=== PATIENT | female | born 1945 | race Caucasian/White ===

== ENCOUNTER 2016-02-27 21:49 | Observation (INO) | payer MEDICARE, MEDICAID ==
[2016-02-27 21:50] VITALS: BMI 31.9
--- NOTE | 2016-02-27 22:16 | EDPRACDOC ---
- History of Present Illness Onset: 2100 HPI: PT COMPLAINS OF SUDDEN ONSET OF SUBSTERNAL CP AT 2100 TONIGHT WHILE LAYING IN BED, PT DESCRIBES PAIN ELEPHANT SITTING ON HER CHEST, STATES SHE FELT SOBR AND WAS NAUSEATED WITH THE PAIN, VOMITED X 1. EMS GAVE NTG X 2, PAIN WENT FROM 8/10 TO 3/10. PT STATES BYPASS SURGERY 5 YEARS AGO, STATES LAST CATH 4 YEARS AGO IN [facility], [place]. PT STATES RECENTLY MOVED HERE FROM [place], LIVING IN [facility]. Chest Pain Location: Reports: Substernal Pain Radiation: Reports: None Symptoms Occur: Reports: Suddenly, At Rest Cardiac Risk Factors: Reports: Hyperlipidemia, Hypertension, Diabetes Cardiac History of: Reports: Similar Pain in Past, [place], Cardiac Cath, CABG PE Risk Factors: Reports: None Medications within 24 Hours: Reports: None Prehospital Care: Reports: O2, IV, EKG, Monitor, SL NTG Pain Came On: Reports: Suddenly Pain Status: Present Now Pain Description: Reports: Pressure Pain Severity: Moderate Pain Worsens With: Reports: Nothing Pain Improves With: Reports: Nitroglycerin Associated Signs and Symptoms: Reports: SOB, Diaphoretic, Nausea. Denies: Palpitations, Vomiting, Calf Pain or Swelling, Chest Rash <Kofi Koehler - Last Filed: 02/27/16 23:42> <Jonah Camarillo - Last Filed: 02/27/16 23:58> - General Information Chief Complaint: Chest Pain Stated Complaint: CHEST PAIN Time Seen by Provider: 02/27/16 21:57 Home Medications: Home Medications Meloxicam 15 mg PO DAILY 12/04/15 Donepezil HCl 5 mg PO QHS 02/02/16 Acetaminophen [Mapap] 1,000 mg PO Q8H PRN 02/27/16 Budesonide/Formoterol Fumarate [Symbicort 160-4.5 Mcg Inhaler] 2 puff INH BID Cyanocobalamin (Vitamin B-12) [Vitamin B-12] 1,000 mcg PO DAILY 02/27/16 Diphenhydramine [Benadryl] 25 mg PO Q4H PRN 02/27/16 Ergocalciferol (Vitamin D2) [Vitamin D] 50,000 units PO WE 02/27/16 Melatonin/Pyridoxine [Melatonin 3 mg Tablet] 1 tab PO QHS 02/27/16 Multivitamin [One Daily] 1 tab PO DAILY 02/27/16 Nitroglycerin [Nitrostat] 0.4 mg SL Q5MX3 PRN 02/27/16 Phosp Acid/Dextrose/Fructose [Emetrol Oral Solution] 30 ml PO Q15MIN PRN Sitagliptin Phos/Metformin HCl [Janumet Xr 100-1,000 mg Tablet] 1 tab PO QHS Trazodone HCl [Desyrel] 50 mg PO QHS PRN 02/27/16 Allergies/Adverse Reactions: Allergies Allergy/AdvReac Type Severity Reaction Status Date / Time codeine [Codeine] Allergy Nausea/Vomi Verified 12/04/15 12:58 ting ED Past Medical History - History Reviewed Yes Nurses notes reviewed and agree except as marked - Patient Medical History Neurological History: Reports: Cerebrovascular Accident, Dementia Cardiac History: Reports: Atrial Fibrillation, Hypertension, Heart Attack, CABG (x 2). Denies: Congestive Heart Failure, Hypercholesterolemia Respiratory History: Denies: Asthma, COPD, Emphysema GI/ History: Denies: Gastroesophageal Reflux Musculoskeletal History: Reports: Arthritis Psychological History: Denies: Depression, Substance Use Disorder Systemic History: Reports: Diabetes. Denies: Cancer Surgical History: Reports: CABG (x 2) - Family Medical History Reports: Stroke (mom), Cardiac Disorders (dad) - Social Medical History Smoking Status: Former smoker Social History: Denies: Substance Use Disorder ETOH: None Substance Abuse: None Lives In: Assisted Living <Kofi Koehler - Last Filed: 02/27/16 23:42> - Patient Medical History Neurological History: Reports: Other Cardiac History: Reports: Cardiac Catheterization Surgical History: Reports: Other (3 VESSEL BIPASS GRAFT 5 YEARS AGO IN [place]. MULTIPLE STENTS- 8 LAST 6) <Jonah Camarillo - Last Filed: 02/27/16 23:58> EDM Review of Systems - Review of Systems Constitutional: negative: Chills, Fever Eyes: negative: Blurred Vision, Double Vision Ears: negative: Drainage Throat: negative: Pain Nose: negative: Congestion, Discharge Respiratory: Shortness of Breath. negative: Cough, Wheezing Cardiovascular: Chest Pain. negative: Palpitations Gastrointestinal: Nausea, Vomiting. negative: Diarrhea, Pain Genitourinary: negative: Dysuria, Frequency Neurological: negative: Dizziness, Headache, Numbness, Weakness Musculoskeletal: No Symptoms Reported Integumentary: No Symptoms Reported <Kofi Koehler - Last Filed: 02/27/16 23:42> - Physical Exam Constitutional: Alert (Awake), No apparent distress Oriented to: Time, Person, Place Last recorded Vital Signs: Oxygen Pulse Oxygen Saturation O2 Device Oxygen Flow Rate Fraction of Inspired Oxygen ( FIO2) - HEENT Head: Normal ( normocephalic) Eye Exam: Normal (PERRL, EOMI, Sclera white) Oropharynx: Normal (Pharynx:Moist without exudate,Gums-no swelling) Tympanic Membrane: Normal ENT EAC: Normal TMJ: Normal Nose: No Symptoms Reported (septum midline) Neck: Normal (FROM, trachea at midline) - Respiratory/Cardiovascular Respiratory: Normal - CTA (BBS clear to auscultation without adventitious sounds ) Cardiovascular: Normal (RRR without murmur, gallop or rub) - GI Auscultation: Normal (NABS) Palpation: Normal (Soft,No rebound or guarding, non distended) Tenderness: Non tender Wiseman's Sign: Negative - Musculoskeletal Back: Normal (Non-Tender) Extremities: Normal (Normal tone, Pulses 2+ No cyanosis or edema, FROM) - Integumentary Skin: Normal, Warm, Dry Lymphatics: Normal (no adenopathy) - Neurologic Memory Impaired: Normal Motor Function: Normal (Normal tone, Pulses 2+ No cyanosis or edema, FROM) Cranial Nerve: Normal (CN II-X11 intact sensation, strength 5/5) Cerebellar: Normal Mood Description: Normal Perception: Normal <Kofi Koehler - Last Filed: 02/27/16 23:42> - Physical Exam Last recorded Vital Signs: Last Vital Signs Temp 97.8 F 02/27/16 21:50 Pulse 71 02/27/16 21:50 Resp 18 02/27/16 21:50 BP 144/71 02/27/16 21:50 Pulse Ox 93 02/27/16 21:50 Oxygen Pulse Oxygen Saturation 93 O2 Device Nasal Cannula Oxygen Flow Rate 2 Fraction of Inspired Oxygen ( FIO2) <Jonah Camarillo - Last Filed: 02/27/16 23:58> ED Chest Pain Exam - Respiratory/Cardiovascular Respiratory: Normal - CTA Cardiovascular/Chest: Normal Radial Pulse: Normal Carotid Arteries: Normal Edema: negative: 1+, 2+, 3+, 4+, 5, 6 Chest Palpation: Normal <Kofi Koehler - Last Filed: 02/27/16 23:42> - Differential Diagnosis Angina, CHF, Costochondritis, Gastritis, Myocardial infarction, Pancreatitis, Pneumonia - Action Patient received Aspirin within last 24 hours?: No ASA given in the ED: Yes Patient received Beta Raven within last 24hrs: Yes - Re-evaluation Re-evaluation 1 Re-evaluation Time: 23:43 (PAIN RESOLVED) - Results 02/27/16 22:10 02/27/16 22:10 - EKG EKG #1 EKG Time: 21:58 -: Yes EKG interpreted by me Rate: bpm: 76 [place]: Normal Rhythm: NSR, PVCs Block: None Hypertrophy: None ST: Nonsp Comparison: 04/21/15 (NO CHANGE ) - Additional Information DISCUSSED WITH DR CAMARILLO, HE HAS SEEN PT, WILL DISCUSS WITH HOSPITALIST <Kofi Koehler - Last Filed: 02/27/16 23:42> - Results 02/27/16 22:10 02/27/16 22:10 <Jonah Camarillo - Last Filed: 02/27/16 23:58> - Departure Education/Counseling Given To: Patient Education/Counseling Given Regarding: Diagnosis, Treatment, Prognosis, Follow Up <Kofi Koehler - Last Filed: 02/27/16 23:42> - Departure Yes I personally saw and evaluated the patient. Disposition: Admit IP To This Hospital Decision to Admit Time: 23:57 Decision to admit date: 02/27/16 Decision to admit: from ED - Physician Consulted Hospitalist Time Called: 23:58 Provider Called: Nico Beck Time Child Attendant Returned Call: 23:58 <Jonah Camarillo - Last Filed: 02/27/16 23:58> - Departure Condition: Stable Final Diagnosis: ACS (acute coronary syndrome) Instructions: Chest Pain (ED)
[2016-02-27] MEDS ORDERED: NITROGLYCERINE 2 % OINTMENT PACK TOP ONE (22:18)
[2016-02-27] MEDS ORDERED: SODIUM CHLORIDE 0.9% 10 ML FLUSH FLUSH PRN (22:18)
[2016-02-27] MEDS ORDERED: ASPIRIN (CHEWABLE) 81 MG TAB PO ONE (22:18)
--- NOTE | 2016-02-27 22:43 | DIRPT ---
CLINICAL DATA: Substernal chest pain beginning at 2100 hours tonight, while in bed. Shortness of breath with nausea and vomiting. History of CABG, hypertension, atrial fibrillation, stroke, diabetes, dementia. EXAM: PORTABLE CHEST 1 VIEW COMPARISON: Chest radiograph June 26, 2015 FINDINGS: Cardiac silhouette is upper limits of normal in size, coronary artery stent noted. Calcified aortic knob. Status post median sternotomy. No pleural effusion or focal consolidation. No pneumothorax. Status post RIGHT shoulder arthroplasty. Surgical clips projected GE junction. IMPRESSION: Borderline cardiomegaly, no acute pulmonary process. Electronically Signed By: Shree Leigh M.D. On: 02/27/2016 22:40
[2016-02-27 23:05] LABS: AUTOMATED BASOPHIL 1.2 % (0-2); AUTOMATED EOSINOPHIL 3.7 % (0-5); AUTOMATED LYMPH 15.2 % (17-44); AUTOMATED MONOCYTE 7.4 % (3-10); AUTOMATED NEUTROPHIL 72.5 % (45-76); BLOOD UREA NITROGEN 14 MG/DL (7-17); CALC CORRECTED 9.9 MG/DL (8.4-10.2); CALCIUM 9.5 MG/DL (8.4-10.2); CALCULATED OSMOLALITY 269 MOs/Kg (270-290); CHLORIDE 104 mEq/L (98-107); GLUCOSE 102 MG/DL (70-99); MPV 10.1 fL (7.4-10.4); SODIUM LEVEL 139 mEq/L (137-146); TOTAL PROTEIN 6.4 G/DL (6.3-8.2)
[2016-02-27 23:11] LABS: PARTIAL THROMB. TIME 25.8 SEC (22-35); PT-INR 1.1
--- NOTE | 2016-02-27 23:36 | HISTPHYS ---
- Chief Complaint chest pain - History of Present Illness PRIMARY CARE PROVIDER: Dr. Hassan Patient is a resident of [facility] HPI: The patient is a 70 yo woman with coronary artery disease, history of CABG, who presents with chest pressure and palpitations. Onset: this evening. Duration: intermittent. Location: substernal. Radiation: right arm. Character: 6/10, pressure, "like an elephant sitting on my chest." Alleviated by: Nothing. Exacerbated by: Nothing. Associated Symptoms: Shortness of breath. Non-productive cough. No wheezing. No diaphoresis. Palpitations and chest pain. Vomiting x 2. Nausea. Nothing to eat in 2-3 days due to nausea. Chronic constipation. No abdominal pain, diarrhea, or bloody stool. Treatments: none at home except usual medications. - Medical History Cardiac History: Reports: Atrial Fibrillation, Hypertension, Heart Attack, CABG (x 2) Musculoskeletal History: Reports: Arthritis Systemic History: Reports: Diabetes (Type 2) Neurological History: Reports: Cerebrovascular Accident, Dementia, Other Idiopathic neuropathy. - Surgical History Reports: CABG (x 2) - Medictions/Allergies Allergies codeine [Codeine] Allergy (Verified 12/04/15 12:58) Nausea/Vomiting Current Medication List: Reviewed Home Medications Meloxicam 15 mg PO DAILY 12/04/15 Donepezil HCl 5 mg PO QHS 02/02/16 Acetaminophen [Mapap] 1,000 mg PO Q8H PRN 02/27/16 Budesonide/Formoterol Fumarate [Symbicort 160-4.5 Mcg Inhaler] 2 puff INH BID Cyanocobalamin (Vitamin B-12) [Vitamin B-12] 1,000 mcg PO DAILY 02/27/16 Diphenhydramine [Benadryl] 25 mg PO Q4H PRN 02/27/16 Ergocalciferol (Vitamin D2) [Vitamin D] 50,000 units PO WE 02/27/16 Melatonin/Pyridoxine [Melatonin 3 mg Tablet] 1 tab PO QHS 02/27/16 Multivitamin [One Daily] 1 tab PO DAILY 02/27/16 Nitroglycerin [Nitrostat] 0.4 mg SL Q5MX3 PRN 02/27/16 Phosp Acid/Dextrose/Fructose [Emetrol Oral Solution] 30 ml PO Q15MIN PRN Sitagliptin Phos/Metformin HCl [Janumet Xr 100-1,000 mg Tablet] 1 tab PO QHS Trazodone HCl [Desyrel] 50 mg PO QHS PRN 02/27/16 - Family History Reports: Stroke (mom), Cardiac Disorders (dad) - Social History Smoking Status: Former smoker Social History: Denies: Alcohol Use, Substance Use Disorder - Review of Systems GENERAL: No Fever, chills, or diaphoresis. Positive for fatigue/malaise. HEENT: No ear pain or discharge. No nasal discharge or bleeding. No throat pain or swelling. No eye pain or eye redness. RESPIRATORY: Shortness of breath. Non-productive cough. No wheezing. CARDIOVASCULAR: Palpitations and chest pain. GI: Vomiting x 2. Nausea. Nothing to eat in 2-3 days due to nausea. Chronic constipation. No abdominal pain, diarrhea, or bloody stool. NEUROLOGICAL: No headache or focal weakness. INTEGUMENT: no rashes, itching, or lesions. LYMPHATIC SYSTEM: no lymph node swelling or pain. MUSCULOSKELETAL: no new pain or joint swelling. GENITOURINARY: No dysuria or hematuria. ENDOCRINE: No polyuria or polydipsia. HEME: No chronic anemia, bleeding. Positive for easy bruising. - Physical Exam Vital Signs: Initial Vitals Temperature 97.8 F 02/27/16 21:50 Pulse Rate 71 02/27/16 21:50 Respiratory Rate 18 02/27/16 21:50 Blood Pressure 144/71 02/27/16 21:50 Pulse Oxygen Saturation 93 02/27/16 21:50 Weight: 89.6 kg Height: 5'6" BMI: 31.9 - Other Exam Other Exam Findings: GENERAL: Ill-appearing, well nourished, no acute distress. HEENT: Normocephalic, atraumatic; pupils equal and round. Nares patent, without discharge or bleeding. No oropharyngeal lesions or erythema. Mucous membranes are dry. NECK: is supple, no masses, trachea midline. RESPIRATORY: Clear to auscultation bilaterally. Chest wall movements are symmetric. No use of accessory muscles to breathe. No wheezing, rales, rhonchi. CARDIOVASCULAR: Normal S1, S2. Murmur 2/6 systolic. No rubs, or gallops. PMI non -displaced. Carotids: no carotid bruits. No bradycardia or tachycardia. DP pulses 2+ bilaterally. GI: soft, nontender, non-distended, normal active bowel sounds. No hepatosplenomegaly. INTEGUMENT: Clean, dry, and intact. No rashes. MUSCULOSKELETAL: Moving all extremities. No cyanosis. No clubbing. Edema: trace to 1+ lower extremity edema bilaterally. NEUROLOGICAL: Cranial nerves 2-12 grossly intact. Motor 4/5 throughout. Reflexes : 2+ bilaterally. Babinski: toes downgoing bilaterally. Intact Finger to nose. Sensory grossly intact to light touch. Intact rapid alternating movements bilaterally. No pronator drift. PSYCHIATRIC: Fully oriented. Normal and appropriate affect. LYMPHATIC: No cervical lymphadenopathy. No supraclavicular lymphadenopathy. - Lab Results Laboratory Results - last 24 hr 02/27/16 02/27/16 02/27/16 22:10 22:10 22:10 WBC 11.1 H RBC 4.60 Hgb 12.0 Hct 37.9 MCV 82 MCH 26.1 L MCHC 31.7 L RDW 16.3 H Plt Count 214 MPV 10.1 Neut % (Auto) 72.5 Lymph % (Auto) 15.2 L [place] % (Auto) 7.4 Eos % (Auto) 3.7 Baso % (Auto) 1.2 Absolute Neuts (auto) 7.99 Absolute Lymphs (auto) 1.67 PT 11.2 INR 1.1 APTT 25.8 Sodium 139 Potassium 3.9 Chloride 104 Carbon Dioxide 25 Anion Gap 14 BUN 14 Creatinine 0.70 Estimated GFR (MDRD) > 60 Glucose 102 H Calculated Osmolality 269 L Calcium 9.5 Corrected Calcium 9.9 Total Bilirubin 0.4 AST 20 ALT 32 Alkaline Phosphatase 106 Troponin I < 0.01 Zlw-K-Zaebhkobowc Pept 2500 H Total Protein 6.4 Albumin 3.6 - Diagnostic Findings EK beats per minute. Sinus rhythm with occasional PVCs. Reviewed EKG personally. Chest x-ray, viewed personally: EXAM: PORTABLE CHEST 1 VIEW COMPARISON: Chest radiograph June 26, 2015 FINDINGS: Cardiac silhouette is upper limits of normal in size, coronary artery stent noted. Calcified aortic knob. Status post median sternotomy. No pleural effusion or focal consolidation. No pneumothorax. Status post RIGHT shoulder arthroplasty. Surgical clips projected GE junction. IMPRESSION: Borderline cardiomegaly, no acute pulmonary process. - Assessment (1) Chest pain R07.9 - CHEST PAIN, UNSPECIFIED Acute Present on Admission: Yes Qualifiers: Chest pain type: C Ischemic chest pain type: I Rule out myocardial infarction. Plan: Obtain cardiac enzymes x 3. Place patient on telemetry. Give patient oxygen, aspirin. Give nitroglycerin, and morphine as needed for chest pain. Give statin. Stress test has been ordered for the morning. Patient has been advised, if the stress test is negative, to follow up with the primary care provider for evaluation of other potential causes of the chest pain. (2) Palpitations R00.2 - PALPITATIONS Acute Present on Admission: Yes Telemetry (3) Elevated brain natriuretic peptide (BNP) level R79.89 - OTHER SPECIFIED ABNORMAL FINDINGS OF BLOOD CHEMISTRY Acute Present on Admission: Yes Monitor for fluid overload. (4) Nausea and vomiting R11.2 - NAUSEA WITH VOMITING, UNSPECIFIED Acute Present on Admission: Yes Qualifiers: Vomiting type: V Vomiting Intractability: V PRN Zofran, Phenergan. (5) Shortness of breath R06.02 - SHORTNESS OF BREATH Acute Present on Admission: Yes Plan: O2 by NC prn. (6) Type 2 diabetes mellitus with diabetic polyneuropathy E11.42 - TYPE 2 DIABETES MELLITUS WITH DIABETIC POLYNEUROPATHY Acute Present on Admission: Yes Qualifiers: Diabetes mellitus intermediate accountant insulin use: D Plan: Hold oral diabetes medications. Check fingerstick blood sugars q ac and hs. Sliding scale insulin. Ordered A1c and urine microalbumin. Case Care Discussed with: Patient, Nursing Staff
[2016-02-27] MEDS ORDERED: METOPROLOL TARTRATE 25 MG TAB PO ONE (23:45)
[2016-02-28] MEDS ORDERED: DIPHENHYDRAMINE 25 MG CAP PO PRN (00:20)
[2016-02-28] MEDS ORDERED: ATORVASTATIN 40 MG TAB PO ONE (00:22)
[2016-02-28] MEDS ORDERED: NITROGLYCERINE 0.4 MG TAB SL PRN (00:23)
[2016-02-28] MEDS ORDERED: MELATONIN PO SCH (00:30)
[2016-02-28] MEDS ORDERED: PYRIDOXINE PO SCH (00:30)
[2016-02-28] MEDS ORDERED: BISACODYL 5 MG TAB PO PRN (01:00)
[2016-02-28] MEDS ORDERED: GUAIFEN 100 MG-DEXTROMETH 10 MG PER 5 ML PO PRN (01:00)
[2016-02-28] MEDS ORDERED: TEMAZEPAM 15 MG CAP PO PRN (01:00)
[2016-02-28] MEDS ORDERED: BENZONATATE 100 MG PERLES PO PRN (01:00)
[2016-02-28] MEDS ORDERED: GLUCOSE (ORAL GEL) 15 GM TUBE PO PRN (01:00)
[2016-02-28] MEDS ORDERED: SIMETHICONE 80 MG TAB PO PRN (01:00)
[2016-02-28] MEDS ORDERED: ONDANSETRON HCL 4 MG/2 ML VIAL IV PRN (01:00)
[2016-02-28] MEDS ORDERED: SENNA CONCENTRATE TAB PO PRN (01:00)
[2016-02-28] MEDS ORDERED: ACETAMINOPHEN 325 MG SUPP PR PRN (01:00)
[2016-02-28] MEDS ORDERED: PROMETHAZINE 25 MG/ML VIAL IV PRN (01:00)
[2016-02-28] MEDS ORDERED: Pharmacy Order Set Alert SCH (01:00)
[2016-02-28] MEDS ORDERED: GLUCAGON 1 MG VIAL SQ PRN (01:00)
[2016-02-28] MEDS ORDERED: Docusate Sodium 100 MG CAP PO PRN (01:00)
[2016-02-28] MEDS ORDERED: DEXTROSE 25 GM/50 ML PFS IV PRN (01:00)
[2016-02-28] MEDS: ALBUTEROL 0.083% 3 ML NEB NEB SCH ×4 (03:07→19:15)
[2016-02-28] MEDS: MORPHINE 2 MG/ML INJECTION IV PRN ×2 (03:14→12:31)
[2016-02-28] MEDS ORDERED: Vaccine Screening Complete SCH (04:00)
[2016-02-28] MEDS: REGULAR INSULIN 100 UNITS/ML - 3 ML VIAL SQ SCH ×3 (06:10→18:10)
[2016-02-28 07:15] LABS: MPV 9.1 fL (7.4-10.4)
[2016-02-28 07:22] LABS: BLOOD UREA NITROGEN 13 MG/DL (7-17); CALCIUM 9.6 MG/DL (8.4-10.2); CALCULATED OSMOLALITY 274 MOs/Kg (270-290); CHLORIDE 106 mEq/L (98-107); GLUCOSE 85 MG/DL (70-99); SODIUM LEVEL 143 mEq/L (137-146)
[2016-02-28] MEDS ORDERED: ASPIRIN (CHEWABLE) 81 MG TAB PO SCH (08:00)
[2016-02-28] MEDS: ACETAMINOPHEN 325 MG/TAB TABLET PO PRN ×2 (08:21→15:51)
[2016-02-28] MEDS ORDERED: CARVEDILOL 3.125 MG TAB PO SCH (09:00)
[2016-02-28] MEDS ORDERED: Non-Formulary Medication ITEM (Cyanocobalamin (Vitamin B-12) [Vitamin B-12] 1,000 MCG) PO SCH (09:00)
[2016-02-28] MEDS ORDERED: LISINOPRIL 5 MG TAB PO SCH (09:00)
[2016-02-28] MEDS ORDERED: Non-Formulary Medication ITEM (Budesonide/Formoterol Fumarate [Symbicort 160-4.5 Mcg Inh INH SCH (09:00)
[2016-02-28] MEDS ORDERED: Non-Formulary Medication ITEM (Multivitamin [One Daily] 1 TAB) PO SCH (09:00)
--- NOTE | 2016-02-28 09:31 | PCM.CARDCO ---
Consultation Date: 02/28/16 Requesting Physician: Nico Beck Distribution Coordinator: Rafi Conroy Consult Reason: Chest Pain, Other (With known CAD and remote bypass surgery) - History of Present Illness She is 70-year-old woman recently relook relocated to [facility]. She relates she had bypass surgery approximately 5 years ago in [place] has had no cardiology care and does not even take aspirin. She has has time to time she has chest pain heaviness in her chest precordial it is relieved with rest last night she had the same unrelieved with rest but tells me she was read given relief with the nitroglycerin. She also complains that time to time she has point localized soreness in her chest and has chest wall tenderness to physical examination. She also relates a history of having heart failure. I cannot get her to quantitate but she said the episodes of chest pain or in frequent and typically relieved at rest. Chief Complaint: chest pain - Past Medical and Surgical History Cardiac History: Reports: Atrial Fibrillation (Chads 2 Vasc score equals 6), Hypertension, Congestive Heart Failure, Heart Attack, Cardiac Catheterization, CABG (x 2). Denies: Hypercholesterolemia Respiratory History: Denies: Asthma, COPD, Emphysema GI/ History: Denies: Gastroesophageal Reflux Systemic History: Reports: Diabetes (Type 2). Denies: Cancer Musculoskeletal History: Reports: Arthritis Psychological History: Reports: Anxiety. Denies: Depression, Alcoholism, Substance Use Disorder Neurological History: Reports: Cerebrovascular Accident, Dementia, Other Past Surgical History: Reports: CABG (x 2), Cardiac Catheterization, Other (3 VESSEL BIPASS GRAFT 5 YEARS AGO IN [place]. MULTIPLE STENTS- 8 LAST 6) Allergies codeine [Codeine] Allergy (Verified 12/04/15 12:58) Nausea/Vomiting Home Medications Meloxicam 15 mg PO DAILY 12/04/15 Donepezil HCl 5 mg PO QHS 02/02/16 Acetaminophen [Mapap] 1,000 mg PO Q8H PRN 02/27/16 Budesonide/Formoterol Fumarate [Symbicort 160-4.5 Mcg Inhaler] 2 puff INH BID Cyanocobalamin (Vitamin B-12) [Vitamin B-12] 1,000 mcg PO DAILY 02/27/16 Diphenhydramine [Benadryl] 25 mg PO Q4H PRN 02/27/16 Ergocalciferol (Vitamin D2) [Vitamin D] 50,000 units PO WE 02/27/16 Melatonin/Pyridoxine [Melatonin 3 mg Tablet] 1 tab PO QHS 02/27/16 Multivitamin [One Daily] 1 tab PO DAILY 02/27/16 Nitroglycerin [Nitrostat] 0.4 mg SL Q5MX3 PRN 02/27/16 Phosp Acid/Dextrose/Fructose [Emetrol Oral Solution] 30 ml PO Q15MIN PRN Sitagliptin Phos/Metformin HCl [Janumet Xr 100-1,000 mg Tablet] 1 tab PO QHS Trazodone HCl [Desyrel] 50 mg PO QHS PRN 02/27/16 - Social History Travel Outside of [place] in the Last 3 Months?: No Smoking Status: Former smoker Social History: Denies: Alcohol Use, Substance Use Disorder - Family History Reports: Stroke (mom), Cardiac Disorders (dad) - Review of Systems Yes All systems reviewed and were negative except as marked Constitutional: negative: Chills, Fever - Cardiovascular Chest Pain - Hematologic Easy Bruising - Physical Exam Constitutional: No apparent distress, Alert (Awake), Other (She appears older than her age) Oriented to: Time, Person, Place Exam: Last Vital Signs Temp 98.3 F 02/28/16 08:13 Pulse 58 L 02/28/16 08:13 Resp 18 02/28/16 08:13 BP 129/62 02/28/16 08:13 Pulse Ox 94 02/28/16 08:13 Intake & Output 02/27/16 02/28/16 02/28/16 23:59 07:59 15:59 Output Total 50 Balance -50 Patient's weight 197 lb 11.2 oz - HEENT Head: Normal (No bruit thyromegaly or neck vein distention) Eye: Normal (PERRL, EOMI, Sclera white) Oropharynx: Normal (Pharynx:Moist without exudate,Gums-no swelling) Tympanic Membrane: Normal ENT EAC: Normal TMJ: Normal Nose: No Symptoms Reported (septum midline) - Respiratory/Cardiovascular Respiratory: Normal - CTA Cardiovascular: Normal. negative: Systolic murmur, Gallop/S3 - GI Auscultation: Normal (The abdomen is soft nondistended nontender) Palpation: Normal (Soft,No rebound or guarding, non distended) Tenderness: Non tender - Musculoskeletal Back: Normal (Non-Tender) Extremities: Normal (Normal tone, Pulses 2+ No cyanosis or edema, FROM), Femoral Pulse, Pedal Pulse, Radial Pulse. negative: Calf Tenderness, Clubbing, Cyanosis, Edema, Pedal Edema - Integumentary Skin: Normal, Warm, Dry Lymphatics: Normal (no adenopathy) - Neurologic Memory Impaired: Normal Cerebellar: Normal Mood Description: Normal Perception: Normal - Lab Results Laboratory Tests 02/27/16 02/27/16 02/28/16 22:10 22:10 04:15 WBC Hgb Hct INR 1.1 Potassium Creatinine Estimated GFR (MDRD) Hemoglobin A1c Troponin I < 0.01 < 0.01 Htw-G-Xzrqrusrkmc Pept 2500 H LDL Cholesterol, Calc 02/28/16 02/28/16 02/28/16 06:47 06:47 06:47 WBC Hgb Hct INR Potassium 4.2 Creatinine 0.80 Estimated GFR (MDRD) > 60 Hemoglobin A1c 6.0 H Troponin I < 0.01 Grk-G-Cfkdapxgexa Pept LDL Cholesterol, Calc 47.0 02/28/16 06:47 WBC 9.1 Hgb 11.3 L Hct 34.8 L INR Potassium Creatinine Estimated GFR (MDRD) Hemoglobin A1c Troponin I Gcp-E-Ohcyhjuoipo Pept LDL Cholesterol, Calc PORTABLE CHEST 1 VIEW COMPARISON: Chest radiograph June 26, 2015 FINDINGS: Cardiac silhouette is upper limits of normal in size, coronary artery stent noted. Calcified aortic knob. Status post median sternotomy. No pleural effusion or focal consolidation. No pneumothorax. Status post RIGHT shoulder arthroplasty. Surgical clips projected GE junction. IMPRESSION: Borderline cardiomegaly, no acute pulmonary process. EKG shows sinus rhythm diffuse ST-T abnormality repolarization versus ischemia - Assessment/Plan (1) CAD (coronary artery disease), [place] coronary artery I25.10 - ATHSCL HEART DISEASE OF [place] CORONARY ARTERY W/O ANG PCTRS Acute [place] heart with unspecified angina I25.119 - Atherosclerotic heart disease of [place] coronary artery with unspecified angina pectoris Comment: She has a history of known CAD remote bypass and presents with atypical angina. I would continue current guideline directed treatment aspirin statin beta- jeffry and guide the need for additional antianginal therapy or consideration of revascularization based on the results of her myocardial perfusion study performed this morning pharmacologically. Her comorbidities especially dementia with my opinion favor medical therapy. (2) Chest pain R07.9 - CHEST PAIN, UNSPECIFIED Acute unspecified I R07.9 - Chest pain, unspecified Comment: Atypical angina please see discussion above. Patient should have nitroglycerin available to taken a p.r.n. basis. She also has an element of chest wall tenderness which potentially may be the etiology of her symptoms. This is not uncommon after bypass surgery (3) Hypertension I10 - ESSENTIAL (PRIMARY) HYPERTENSION Chronic essential hypertension Comment: Stable continue current treatment carvedilol, and a 2nd agent is needed Dom or Arb would be ideal with her CAD Case Care Discussed with: Patient
[2016-02-28] MEDS ORDERED: SODIUM CHLORIDE 0.9% 10 ML FLUSH FLUSH ONE (10:00)
[2016-02-28] MEDS ORDERED: REGADENOSON 0.4 MG/5 ML SYRINGE IV ONE (10:00)
[2016-02-28] MEDS: BUDESONIDE 0.5 MG NEB NEB SCH ×2 (10:59→19:16)
[2016-02-28] MEDS ORDERED: SESTAMIBI 8 MCI V IV ONE (11:05)
[2016-02-28] MEDS ORDERED: CYANOCOBALAMIN (Vitamin B-12) 500 MCG TABLET PO SCH (12:00)
[2016-02-28] MEDS ORDERED: VITAMINS, MULTIPLE CAP PO SCH (12:00)
--- NOTE | 2016-02-28 16:08 | PCM.STRESS ---
This is a Lexiscan Cardiolite test. Patient received a standard dose of Lexiscan. The baseline heart rate and blood pressure, 58 beats per minute 110/70. The peak heart rate and blood pressure, 104 beats per minute 112/66. The resting EKG shows sinus rhythm nonspecific T-wave abnormality. The stress EKG segment response is normal to 69% of the maximum predicted heart rate of 150 beats per minute. The blood pressure response is normal. The rhythm is sinus, there is no arrhythmia. Symptoms present, none. The radiologist will generate the Cardiolite image report.
--- NOTE | 2016-02-28 16:12 | CAPUEKG ---
[place], [place] Test Date: 2016-02-28 Pat Name: JACQUELINE LOPEZ Department: Room: 431 Gender: Female Athletic Monitor: : Requested By: Order Number: Reading MD: Rafi Conroy MD Measurements Intervals Gladys Rate: 56 P: 71 OK: 194 QRS: 46 QRSD: 106 T: 1 QT: 430 QTc: 414 Interpretive Statements Sinus bradycardia Otherwise normal ECG Electronically Signed On 02-28-16 16:12:13 EST by Rafi Conroy MD <[id number] [id number]
--- NOTE | 2016-02-28 16:18 | DIRPT ---
CLINICAL DATA: 70-year-old female with atypical chest pain EXAM: MYOCARDIAL IMAGING WITH SPECT (REST AND PHARMACOLOGIC-STRESS) GATED LEFT VENTRICULAR WALL MOTION STUDY LEFT VENTRICULAR EJECTION FRACTION TECHNIQUE: Standard myocardial SPECT imaging was performed after resting intravenous injection of 8 mCi Tc-99m sestamibi. Subsequently, intravenous infusion of Lexiscan was performed under the supervision of the Cardiology staff. At peak effect of the drug, 25 mCi Tc-99m sestamibi was injected intravenously and standard myocardial SPECT imaging was performed. Quantitative gated imaging was also performed to evaluate left ventricular wall motion, and estimate left ventricular ejection fraction. COMPARISON: Prior chest x-ray 02/27/2016 FINDINGS: Perfusion: No decreased activity in the left ventricle on stress imaging to suggest reversible ischemia. There is a small fixed defect in the inferoseptal wall at the ventricular base which may represent artifact. Wall Motion: Normal left ventricular wall motion. No left ventricular dilation. Left Ventricular Ejection Fraction: 75% End diastolic volume 64 ml End systolic volume 16 ml IMPRESSION: 1. No reversible ischemia or infarction. 2. Normal left ventricular wall motion. 3. Left ventricular ejection fraction 75% 4. Low-risk stress test findings*. *2012 Appropriate Use Criteria for Coronary Revascularization Focused Update: J Am Linda Cardiol. 2012;59(9):857-881. http://content.onlinejacc.org/article.aspx?[email or web address] Electronically Signed By: Garcia Fernandes M.D. On: 02/28/2016 16:15
--- NOTE | 2016-02-28 16:27 | PCM.DCS92 ---
- Final/Secondary Discharge Diagnosis (1) Chest pain Acute R07.9 - CHEST PAIN, UNSPECIFIED Present on Admission: Yes unspecified I R07.9 - Chest pain, unspecified Comment: Rule out myocardial infarction. Plan: Obtain cardiac enzymes x 3. Place patient on telemetry. Give patient oxygen, aspirin. Give nitroglycerin, and morphine as needed for chest pain. Give statin. Stress test has been ordered for the morning. Patient has been advised, if the stress test is negative, to follow up with the primary care provider for evaluation of other potential causes of the chest pain. (2) Elevated brain natriuretic peptide (BNP) level Acute R79.89 - OTHER SPECIFIED ABNORMAL FINDINGS OF BLOOD CHEMISTRY Present on Admission: Yes Comment: Monitor for fluid overload. (3) Palpitations Acute R00.2 - PALPITATIONS Present on Admission: Yes Comment: Telemetry (4) Shortness of breath Acute R06.02 - SHORTNESS OF BREATH Present on Admission: Yes Comment: Plan: O2 by NC prn. (5) Type 2 diabetes mellitus with diabetic polyneuropathy Acute E11.42 - TYPE 2 DIABETES MELLITUS WITH DIABETIC POLYNEUROPATHY Present on Admission: Yes D Comment: Plan: Hold oral diabetes medications. Check fingerstick blood sugars q ac and hs. Sliding scale insulin. Ordered A1c and urine microalbumin. Discharge Disposition: Home Discharge Condition: Stable Cognitive Discharge Status: Unimpaired Fuctional Discharge Status: Independent Physician Follow up/Referrals: Wild Hassan MD [Primary Care Provider] - Listed Time Home Medications / New Prescriptions: New Aspirin [Aspirin, Chewable] 81 mg PO DAILYWM #100 tablet Carvedilol [Coreg] 3.125 mg PO BID #60 tablet Atorvastatin Calcium [Lipitor] 40 mg PO HS #30 tablet Continue Meloxicam 15 mg PO DAILY Donepezil HCl 5 mg PO QHS Sitagliptin Phos/Metformin HCl [Janumet Xr 100-1,000 mg Tablet] 1 tab PO QHS Melatonin/Pyridoxine [Melatonin 3 mg Tablet] 1 tab PO QHS Ergocalciferol (Vitamin D2) [Vitamin D2 (ergocalciferol)] 50,000 units PO WE Budesonide/Formoterol Fumarate [Symbicort 160-4.5 Mcg Inhaler] 2 puff INH BID Diphenhydramine [Benadryl] 25 mg PO Q4H PRN PRN Reason: ALLERGIC REACTION Cyanocobalamin (Vitamin B-12) [Vitamin B-12] 1,000 mcg PO DAILY Phosp Acid/Dextrose/Fructose [Emetrol Oral Solution] 30 ml PO Q15MIN PRN PRN Reason: Nausea Acetaminophen [Mapap] 1,000 mg PO Q8H PRN PRN Reason: Pain Trazodone HCl [Desyrel] 50 mg PO QHS PRN PRN Reason: Sleep Or Insomnia Multivitamin [One Daily] 1 tab PO DAILY Nitroglycerin [Nitrostat] 0.4 mg SL Q5MX3 PRN #100 tab.subl PRN Reason: Chest Pain Or Discomfort O2 Device: Room Air Diet at Discharge: As Tolerated, Regular Activity: No Restrictions Call Office For: Worsening Symptoms, Fever over 100.5, Pain Uncontrolled By Meds - DC Summary Notes Hospital Course Note:: Discharge summary on patient named JACQUELINE LOPEZ admitted to [facility] on 02/27/16 by Nico Beck MD. Date of discharge is []. The patient was admitted under observation and serial cardiac enzymes and EKGs were obtained. The patient ruled out for myocardial infarction by serial enzymes and EKGs. The patient then underwent a stress test. The stress test showed no evidence of reversible ischemia. The patient is stable for discharge home. 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 Her ejection fraction was 49% but she had no ischemia. Dr. garcia recommended treatment with aspirin beta-blockers Dom inhibitors and nitrates. She will also receive a statin at discharge. Total Time: 45 min - Physical Exam Vital Signs: Last Vital Signs Temp 98.3 F 02/28/16 12:12 Pulse 72 02/28/16 14:00 Resp 18 02/28/16 12:12 BP 141/65 02/28/16 12:12 Pulse Ox 97 02/28/16 15:01 Oxygen Pulse Oxygen Saturation 97 O2 Device Nasal Cannula Oxygen Flow Rate 2 Fraction of Inspired Oxygen ( FIO2) Constitutional: No apparent distress, Alert (Awake), Other (She appears older than her age) Oriented to: Time, Person, Place - HEENT Head: Normal (No bruit thyromegaly or neck vein distention) Eye: Normal (PERRL, EOMI, Sclera white) Oropharynx: Normal (Pharynx:Moist without exudate,Gums-no swelling) Tympanic Membrane: Normal ENT EAC: Normal TMJ: Normal Nose: No Symptoms Reported (septum midline) - Respiratory/Cardiovascular Respiratory: Normal - CTA Cardiovascular: Normal. negative: Systolic murmur, Gallop/S3 - GI Auscultation: Normal (The abdomen is soft nondistended nontender) Palpation: Normal (Soft,No rebound or guarding, non distended) Tenderness: Non tender - Musculoskeletal Back: Normal (Non-Tender) Extremities: Normal (Normal tone, Pulses 2+ No cyanosis or edema, FROM), Femoral Pulse, Pedal Pulse, Radial Pulse. negative: Calf Tenderness, Clubbing, Cyanosis, Edema, Pedal Edema - Integumentary Skin: Normal, Warm, Dry Lymphatics: Normal (no adenopathy) - Neurologic Memory Impaired: Normal Cerebellar: Normal Mood Description: Normal Perception: Normal - Other Exam Other Exam Findings: This is a Lexiscan Cardiolite test. Patient received a standard dose of Lexiscan. The baseline heart rate and blood pressure, 58 beats per minute 110/70. The peak heart rate and blood pressure, 104 beats per minute 112/66. The resting EKG shows sinus rhythm nonspecific T-wave abnormality. The stress EKG segment response is normal to 69% of the maximum predicted heart rate of 150 beats per minute. The blood pressure response is normal. The rhythm is sinus, there is no arrhythmia. Symptoms present, none. The radiologist will generate the Cardiolite image report.
[2016-02-28 16:40] VITALS: BP 115/58; TEMP 97.7
[2016-02-28] MEDS ORDERED: ENOXAPARIN 40 MG/0.4 ML PFS SQ SCH (18:00)
[2016-02-28] MEDS ORDERED: FLU VACCINE (Afluria) 0.5 ML DOSE IM ONE (18:00)
[2016-02-28 19:17] VITALS: PULSE 95
[2016-02-28] MEDS ORDERED: DONEPEZIL HCL 5 MG TAB PO SCH (21:00)
[2016-02-28] MEDS ORDERED: ATORVASTATIN 40 MG TAB PO SCH (21:00)
[2016-02-29] MEDS ORDERED: FLU VACCINE (Afluria) 0.5 ML DOSE IM ONE (08:00)
[2016-03-04] MEDS ORDERED: ERGOCALCIFEROL (VITAMIN D2) 50000 UNITS CAP PO SCH (09:00)
== END 2016-02-28 19:25 ==
LOC: ED 21:49 → PCU 23:36
PROVIDERS: ADMIT Internal Medicine; ATTEND Hospitalist
DX: R07.9 Chest pain, unspecified (principal); R00.2 Palpitations; R79.89 Other specified abnormal findings of blood chemistry; R11.2 Nausea with vomiting, unspecified; R06.02 Shortness of breath; E11.42 Type 2 diabetes mellitus with diabetic polyneuropathy; Z79.899 Other long term (current) drug therapy; Z87.891 Personal history of nicotine dependence; I25.10 Atherosclerotic heart disease of native coronary artery without angina pectoris; Z95.1 Presence of aortocoronary bypass graft; I10 Essential (primary) hypertension; I48.91 Unspecified atrial fibrillation; I25.2 Old myocardial infarction; Z86.73 Personal history of transient ischemic attack (TIA), and cerebral infarction without residual deficits; F03.90 Unspecified dementia, unspecified severity, without behavioral disturbance, psychotic disturbance, mood disturbance, and anxiety; Z23 Encounter for immunization
CPT/HCPCS: 36415; 71010; 78452; 80048; 80053; 80061; 82043; 82962; 83036; 83880; 84484; 85025; 85027; 85610; 85730; 87641; 93005; 93017; 94640; 96372; 99285; A4216; A9270; A9500; G0008; G0378; J2270; J2785; Q2035; 90471; 90656; J1650; J3490

== ENCOUNTER 2016-03-07 13:18 | Emergency (ER) | payer MEDICARE, MEDICAID ==
[2016-03-07 13:37] VITALS: BMI 31.8
[2016-03-07] MEDS ORDERED: SODIUM CHLORIDE 0.9% 10 ML FLUSH FLUSH PRN (13:37)
[2016-03-07] MEDS ORDERED: NS 1,000 ML IV ONE (13:37)
[2016-03-07 13:40] VITALS: TEMP 98.1
--- NOTE | 2016-03-07 13:47 | EDPRACDOC ---
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 Mode of Arrival: Ambulance Home Medications: Home Medications Meloxicam 15 mg PO DAILY 12/04/15 Donepezil HCl 5 mg PO QHS 02/02/16 Acetaminophen [Mapap] 1,000 mg PO Q8H PRN 02/27/16 Budesonide/Formoterol Fumarate [Symbicort 160-4.5 Mcg Inhaler] 2 puff INH BID Cyanocobalamin (Vitamin B-12) [Vitamin B-12] 1,000 mcg PO DAILY 02/27/16 Diphenhydramine [Benadryl] 25 mg PO Q4H PRN 02/27/16 Ergocalciferol (Vitamin D2) [Vitamin D2 (ergocalciferol)] 50,000 units PO WE Melatonin/Pyridoxine [Melatonin 3 mg Tablet] 1 tab PO QHS 02/27/16 Multivitamin [One Daily] 1 tab PO DAILY 02/27/16 Phosp Acid/Dextrose/Fructose [Emetrol Oral Solution] 30 ml PO Q15MIN PRN Sitagliptin Phos/Metformin HCl [Janumet Xr 100-1,000 mg Tablet] 1 tab PO QHS Trazodone HCl [Desyrel] 50 mg PO QHS PRN 02/27/16 Aspirin [Aspirin, Chewable] 81 mg PO DAILYWM #100 tablet 02/28/16 Atorvastatin Calcium [Lipitor] 40 mg PO HS #30 tablet 02/28/16 Carvedilol [Coreg] 3.125 mg PO BID #60 tablet 02/28/16 Nitroglycerin [Nitrostat] 0.4 mg SL Q5MX3 PRN #100 tab.subl 02/28/16 Guaifenesin [Robitussin] 10 ml PO Q6H PRN 03/07/16 Allergies/Adverse Reactions: Allergies Allergy/AdvReac Type Severity Reaction Status Date / Time codeine [Codeine] Allergy Nausea/Vomi Verified 03/07/16 13:37 ting - History of Present Illness Onset: 2 hours HPI: CP ON AND OFF FOR 5 YEARS; LASTS A FEW SECONDS; STARTED AFTER CABG 5 YEARS AGO. PALPITATIONS BEFORE. STRESS TEST LAST WEEK AND NEGATIVE. Chest Pain Location: Reports: Substernal Pain Radiation: Reports: None Symptoms Occur: Reports: Suddenly Cardiac History of: Reports: Stress Test PE Risk Factors: Reports: None Pain Came On: Reports: No Pain Pain Status: No Pain Pain Description: Reports: Sharp Pain Severity: Mild Pain Improves With: Reports: Nothing Associated Signs and Symptoms: Reports: Palpitations ED Past Medical History - History Reviewed Yes Nurses notes reviewed and agree except as marked - Patient Medical History Neurological History: Reports: Cerebrovascular Accident, Dementia Cardiac History: Reports: Atrial Fibrillation (Chads 2 Vasc score equals 6), Hypertension, Congestive Heart Failure, Heart Attack, Cardiac Catheterization, CABG. Denies: Hypercholesterolemia Respiratory History: Denies: Asthma, COPD, Emphysema GI/ History: Denies: Gastroesophageal Reflux Musculoskeletal History: Reports: Arthritis Psychological History: Reports: Depression, Anxiety. Denies: Substance Use Disorder Systemic History: Reports: Diabetes (Type 2). Denies: Cancer Surgical History: Reports: CABG, Cardiac Catheterization, Other (3 VESSEL BIPASS GRAFT 5 YEARS AGO IN TWO DOT. MULTIPLE STENTS- 8 LAST 6) - Family Medical History Reports: Stroke (mom), Cardiac Disorders (dad) - Social Medical History Smoking Status: Former smoker Social History: Denies: Substance Use Disorder EDM Review of Systems - Review of Systems ROS Negative Except as Marked: Yes All systems reviewed and were negative except as marked - Physical Exam Constitutional: Alert (Awake), No apparent distress Oriented to: Time, Person, Place Last recorded Vital Signs: Last Vital Signs Temp 98.1 F 03/07/16 13:30 Pulse 73 03/07/16 13:35 Resp 18 03/07/16 13:35 BP 141/67 03/07/16 13:35 Pulse Ox 96 03/07/16 13:35 Oxygen Pulse Oxygen Saturation 96 O2 Device Nasal Cannula Oxygen Flow Rate 2 Fraction of Inspired Oxygen ( FIO2) - HEENT Head: Normal ( normocephalic) Eye Exam: Normal (PERRL, EOMI, Sclera white) Oropharynx: Normal (Pharynx:Moist without exudate,Gums-no swelling) Tympanic Membrane: Normal ENT EAC: Normal TMJ: Normal Nose: No Symptoms Reported (septum midline) Neck: Normal (FROM, trachea at midline) - Respiratory/Cardiovascular Respiratory: Normal - CTA (BBS clear to auscultation without adventitious sounds ) Cardiovascular: Normal (RRR without murmur, gallop or rub) - GI Auscultation: Normal (NABS) Palpation: Normal (Soft,No rebound or guarding, non distended) Tenderness: Non tender Wiseman's Sign: Negative - Musculoskeletal Back: Normal (Non-Tender) Extremities: Normal (Normal tone, Pulses 2+ No cyanosis or edema, FROM) - Integumentary Skin: Normal, Warm, Dry Lymphatics: Normal (no adenopathy) - Neurologic Memory Impaired: Normal Motor Function: Normal (Normal tone, Pulses 2+ No cyanosis or edema, FROM) Cranial Nerve: Normal (CN II-X11 intact sensation, strength 5/5) Cerebellar: Normal Mood Description: Normal Perception: Normal - Action ASA given in the ED: Yes Patient received Beta Raven within last 24hrs: No Beta Raven held due to: Other-specify below* (NOT INDICATED) - Results 03/07/16 13:35 03/07/16 13:35 - EKG EKG #1 [place]: Normal Rhythm: NSR Block: None ST: Normal - Departure Yes I personally saw and evaluated the patient. Disposition: Home Condition: Good Final Diagnosis: CHRONIC CHEST PAIN, RECENT NORMAL STRESS TEST, PALPITATIONS Instructions: Chest Pain (ED) Education/Counseling Given To: Patient Education/Counseling Given Regarding: Diagnosis, Treatment, Prognosis Referrals: None,No Provider [NonStaff] - One Week Manuel Dill MD [Staff Physician] - One Week Prescriptions: No Action Meloxicam 15 mg PO DAILY Donepezil HCl 5 mg PO QHS Sitagliptin Phos/Metformin HCl [Janumet Xr 100-1,000 mg Tablet] 1 tab PO QHS Melatonin/Pyridoxine [Melatonin 3 mg Tablet] 1 tab PO QHS Ergocalciferol (Vitamin D2) [Vitamin D2 (ergocalciferol)] 50,000 units PO WE Budesonide/Formoterol Fumarate [Symbicort 160-4.5 Mcg Inhaler] 2 puff INH BID Diphenhydramine [Benadryl] 25 mg PO Q4H PRN PRN Reason: ALLERGIC REACTION Cyanocobalamin (Vitamin B-12) [Vitamin B-12] 1,000 mcg PO DAILY Phosp Acid/Dextrose/Fructose [Emetrol Oral Solution] 30 ml PO Q15MIN PRN PRN Reason: Nausea Acetaminophen [Mapap] 1,000 mg PO Q8H PRN PRN Reason: Pain Trazodone HCl [Desyrel] 50 mg PO QHS PRN PRN Reason: Sleep Or Insomnia Multivitamin [One Daily] 1 tab PO DAILY Aspirin [Aspirin, Chewable] 81 mg PO DAILYWM #100 tablet Carvedilol [Coreg] 3.125 mg PO BID #60 tablet Atorvastatin Calcium [Lipitor] 40 mg PO HS #30 tablet Nitroglycerin [Nitrostat] 0.4 mg SL Q5MX3 PRN #100 tab.subl PRN Reason: Chest Pain Or Discomfort Guaifenesin [Robitussin] 10 ml PO Q6H PRN PRN Reason: Cough
[2016-03-07 13:53] LABS: AUTOMATED BASOPHIL 0.5 % (0-2); AUTOMATED EOSINOPHIL 4.5 % (0-5); AUTOMATED LYMPH 14.2 % (17-44); AUTOMATED MONOCYTE 7.5 % (3-10); AUTOMATED NEUTROPHIL 73.3 % (45-76); MPV 9.2 fL (7.4-10.4)
[2016-03-07 13:57] LABS: BLOOD UREA NITROGEN 18 MG/DL (7-17); CALC CORRECTED 9.7 MG/DL (8.4-10.2); CALCIUM 9.6 MG/DL (8.4-10.2); CALCULATED OSMOLALITY 274 MOs/Kg (270-290); CHLORIDE 103 mEq/L (98-107); GLUCOSE 176 MG/DL (70-99); SODIUM LEVEL 139 mEq/L (137-146); TOTAL PROTEIN 6.9 G/DL (6.3-8.2)
[2016-03-07 14:03] LABS: PARTIAL THROMB. TIME 25.7 SEC (22-35); PT-INR 1.1
--- NOTE | 2016-03-07 14:07 | DIRPT ---
CLINICAL DATA: Chest pain for 2 hours EXAM: PORTABLE CHEST 1 VIEW COMPARISON: 02/27/2016 FINDINGS: Cardiac shadow is within normal limits. Postsurgical changes are noted. The lungs are well aerated bilaterally. No sizable effusion is seen. IMPRESSION: No acute abnormality noted. Electronically Signed By: Logan Story M.D. On: 03/07/2016 14:05
[2016-03-07 15:37] VITALS: BP 156/72; PULSE 72
== END 2016-03-07 15:34 | disposition home or self-care (01) ==
LOC: ED 13:18
DX: R07.9 Chest pain, unspecified (principal); G89.29 Other chronic pain; R00.2 Palpitations
CPT/HCPCS: 36415; 71010; 80053; 83880; 84484; 85025; 85610; 85730; 93005; 96360; 99285